=== PATIENT | female | born 1980 | race Caucasian/White ===

== ENCOUNTER 2018-08-04 15:28 | Emergency (ER) | payer MEDICAID, SELFPAY ==
[2018-08-04] VITALS (8 sets, daily range): BP systolic 111–142; BP diastolic 66–103; PULSE 63–87; RESP 17; TEMP 36.6; O2SAT 97–100
[2018-08-04] MEDS: methylPREDNISolone SUCC 125 MG VIAL IVP (15:41)
--- NOTE | 2018-08-04 15:58 | ED.GENADUL_ITS ---
Discharge Plan Disposition Patient Disposition: HOME Condition: Stable Discharge Details Chief Complaint: Allergic Clinical Impression: Allergic reaction Primary Care Provider: [facility] ED Provider: Osiel Pereira Home Meds and New Rx's Prescriptions: New prednisone 20 mg tablet 20 mg PO DAILY 3 Days Qty: 3 RF: 0 epinephrine [EpiPen 2-Omer] 0.3 mg/0.3 mL auto-injector 0.3 mg IM ONCE PRN (Reason: anaphylaxis) Qty: 1 RF: 0 Discharge Instructions Instructions: General Allergic Reaction (ED) Discharge Data Discharge Physician: Osiel Pereira Medical Decision Making MDM Narrative Medical decision making narrative: 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 Is HD stable now, will treat with steroids and monitor, took benadryl prior to arrival. pt' remains stable and asymptomatic, will d/c on steroids and return precautions given Differential Diagnosis allergic reaction, anaphylaxis HPI General Mode of arrival: ambulatory . Date/Time Provider Initiated Documentation: 08/04/18 15:30 . Limitations to Documentation: no limitations . Information obtained by: patient . History of Present Illness 38 year old F presents to the emergency department with the chief complaint of bee sting to left foot, described as moderate, with intensity rated at 4. Quality is described as aching, Patient reports no radiation. Patient started experiencing this minute(s) (30) No relieving factors improve symptom( s), No exacerbating factors reported . Patient did receive the following treatments prior to arrival, other (epipen) Related Data Previous Rx's Medication Instructions Recorded epinephrine [EpiPen 2-Omer] 0.3 mg IM ONCE PRN #1 each 08/04/18 prednisone 20 mg PO DAILY 3 Days #3 tab 08/04/18 Allergies Allergy/AdvReac Type Severity Reaction Status Date / Time Fish Containing Products Allergy Severe anaphylaxis Unverified 08/04/18 15:53 lidocaine Allergy Severe anaphylaxis Unverified 08/04/18 15:53 peanut Allergy Intermediate throat Unverified 08/04/18 15:53 swelling bee stings Allergy Severe anaphylaxis Uncoded 08/04/18 15:53 General Stated Complaint: Allergic PORTIA: 2 Review of Systems Review of Systems All systems reviewed & are unremarkable except as noted in HPI and below Constitutional Denies chills, Denies fever(s) and Denies weakness Eyes Patient Denies loss of vision ENT Denies change in voice Cardiovascular Denies chest pain Gastrointestinal Denies abdominal pain, Denies nausea and Denies vomiting Genitourinary Denies dysuria Musculoskeletal Denies joint swelling Integumentary/Breasts Denies rash Neurologic Denies loss of vision and Denies weakness Psychiatric Denies depression Endocrine Denies cold intolerance and Denies heat intolerance [facility] Social History Smoking/Tobacco Use Status: Former Tobacco Use Exam Const General: no acute distress Orientation: alert HENMT Head: normal to inspection Ears: external ears normal General nose exam: external nose normal Mouth: moist mucous membranes Eyes General: appearance normal, both eyes and all related structures Neck Neck: normal visual inspection Resp Effort & Inspection: normal respiratory effort and able to speak in complete sentences Cardio Rate: regular rate Skin General skin exam: no rashes or lesions noted Neuro General: alert and oriented x3 Extrem General: normal to inspection Psych Mental Status: mental status grossly normal Course Vital Signs Temperature 36.6 C 08/04/18 15:33 Pulse 87 08/04/18 15:33 Respiratory Rate 17 08/04/18 15:33 Blood Pressure 136/103 H 08/04/18 15:33 Pulse Oximetry 99 08/04/18 15:33 Temperature 36.6 C 08/04/18 15:33 Pulse 87 08/04/18 15:33 Respiratory Rate 17 08/04/18 15:33 Blood Pressure 136/103 H 08/04/18 15:33 Pulse Oximetry 99 08/04/18 15:33
== END 2018-08-04 17:28 | disposition home or self-care (01) ==
PROVIDERS: Emergency Provider Emergency Medicine
DX: T63.441A Toxic effect of venom of bees, accidental (unintentional), initial encounter (principal); Z91.030 Bee allergy status
CPT/HCPCS: 96365; 96375; 99284; J1200; J2930